=== PATIENT | female | born 1935 | race Caucasian/White ===

== ENCOUNTER 2020-04-03 13:39 | Emergency (ER) | payer MEDICARE, OTHER ==
[~2020-04-03] VITALS: Ht 154.9 cm; Wt 86.2 kg
[2020-04-03 13:46] VITALS: BP 127/67
--- NOTE | 2020-04-03 14:44 | Emergency Room Report ---
History of Present Illness General Chief Complaint: Back Pain-No Injury Source: Patient Present Illness HPI 84-year-old female presents to the emergency department complaining of 10 out of 10 severity progressive onset left-sided lower back/upper gluteal pain x1 week. Patient reports she has been taking Tylenol and Advil which does provide some minimal relief however her pain does return. Patient reports a dull ache that is intermittent. Patient reports that cold air exacerbates her symptoms. Patient denies trauma or fall. She denies midline back pain. She denies radiation of her pain down the leg. She denies abdominal pain, fevers, chills, dysuria or urinary frequency. Patient denies rashes. Patient localizes her pain and states it is in the muscles. Patient states initially she was having some relief with Voltaren gel but not anymore. Denies numbness tingling or loss of sensation or gross motor movements of the extremities, incontinence of bowel or bladder. Denies CP, Palpitations, LOC, AMS, dizziness, Changes in Vision, weakness or a sudden severe headache. Allergies: Coded Allergies: ASPIRIN (Verified Allergy, Unknown, 04/03/20) PENICILLINS (Verified Allergy, Unknown, 04/03/20) COVID-19 Screening Contact w/high risk pt: No Experienced COVID-19 symptoms?: No COVID-19 Testing performed ALMOND ROASTER: No Patient History Past Medical History: see triage record Past Surgical History: none Pertinent Family History: none Now: No Reviewed Nursing Documentation: PMH: Agreed; PSxH: Agreed Nursing Documentation-PMH Past Medical History: No Stated History Review of Systems All Other Systems: negative except mentioned in HPI Physical Exam Vital Signs Date Time Temp Pulse Resp B/P (MAP) Pulse Ox O2 Delivery O2 Flow Rate FiO2 04/03/20 13:46 98.2 77 16 127/67 100 Room Air Sp02 EP Interpretation: reviewed, normal General Appearance: no apparent distress, alert, GCS 15, non-toxic Head: normocephalic, atraumatic Eyes: bilateral eye normal inspection, bilateral eye PERRL ENT: hearing grossly normal, normal voice Neck: full range of motion Respiratory: lungs clear, normal breath sounds, speaking full sentences Cardiovascular #1: regular rate, rhythm Gastrointestinal: non tender, soft Genitourinary: normal inspection, no CVA tenderness Musculoskeletal: normal range of motion, gait/station normal - compensatory with cane use, tender - Left upper gluteal and left paraspinal lumbar muscular tenderness to palpation. No bony prominence tenderness no midline spinous process tenderness, no bruises, no obvious spinal deformities, no hip joint pain. Neurologic: alert, motor strength/tone normal, oriented x3, sensory intact, responsive, speech normal, grossly normal Psychiatric: judgement/insight normal Skin: no rash, normal color Medical Decision Making PA Attestation Dr. Sanches Is my supervising Physician whom patient management has been discussed with. Diagnostic Impression: Primary Impression: Back pain Qualified Codes: M54.5 - Low back pain ER Course 84-year-old female presents to the emergency department complaining of 10 out of 10 severity progressive onset left-sided lower back/upper gluteal pain x1 week. Patient reports she has been taking Tylenol and Advil which does provide some minimal relief however her pain does return. Patient reports a dull ache that is intermittent. Patient reports that cold air exacerbates her symptoms. Patient denies trauma or fall. She denies midline back pain. She denies radiation of her pain down the leg. She denies abdominal pain, fevers, chills, dysuria or urinary frequency. Patient denies rashes. Patient localizes her pain and states it is in the muscles. Patient states initially she was having some relief with Voltaren gel but not anymore. Denies numbness tingling or loss of sensation or gross motor movements of the extremities, incontinence of bowel or bladder. Denies CP, Palpitations, LOC, AMS, dizziness, Changes in Vision, weakness or a sudden severe headache. Ddx considered but are not limited to Fracture, dislocation, contusion, epidural abscess, Sprain/Strain/Spasm Vital signs: are WNL, pt. is afebrile H&PE are most consistent with localized muscular pain & tenderness, no bony involvement. Patient is nontoxic in appearance and in no acute distress. She does appear uncomfortable when walking with her cane. ORDERS: X-ray not required at this time, no spinous process tenderness ED INTERVENTIONS: IM Toradol 30mg. Lidoderm patch DISCHARGE: At this time pt. is stable for d/c to home. Will provide printed patient care instructions, and any necessary prescriptions. Care plan and follow up instructions have been discussed with the patient prior to discharge. Last Vital Signs Date Time Temp Pulse Resp B/P (MAP) Pulse Ox O2 Delivery O2 Flow Rate FiO2 04/03/20 13:46 98.2 77 16 127/67 (87) 100 Room Air Disposition: HOME, SELF-CARE Condition: Stable Scripts Lidocaine Patch* (Lidoderm Patch*) 1 Each Adh..patch 1 PATCH TOPIC DAILY, #30 PATCH 0 Refills Patch(es) may remain in place for up to 12 hours in any 24-hour period. Prov: Lashawn Guerra 04/03/20 Methocarbamol* (ROBAXIN-750*) 750 Mg Tablet 750 MG PO QID, #28 TAB 0 Refills Prov: Lashawn Guerra 04/03/20 Referrals: NON PHYSICIAN (PCP) Patient Instructions: Back Pain, Adult Additional Instructions: Take medications as directed. Do not drink alcohol, drive, or operate heavy machinery while taking Robaxin ( Muscle Relaxers) as this may cause drowsiness. Follow up with a Primary Care Provider in 3-5 days, even if your symptoms have resolved. Return sooner to ED if new symptoms occur, or current symptoms become worse. - Please note that this Emergency Department Report was dictated using [employer] insurance technology software, occasionally this can lead to erroneous entry secondary to interpretation by the dictation equipment. Lashawn Guerra Apr 03, 2020 14:44
[2020-04-03] MEDS ORDERED: Ketorolac 30mg Inj IM ONE (14:45)
[2020-04-03] MEDS ORDERED: ROBAXIN-750750 MG PO (14:54)
[2020-04-03] MEDS ORDERED: LIDODERM700 M1 TOPIC (14:54)
[2020-04-03 15:00] VITALS: BP 127/67
[2020-04-03 15:04] VITALS: BP 121/62
[2020-04-03 15:05] VITALS: BP 121/62
== END 2020-04-03 15:05 | disposition home or self-care (01) ==
LOC: EMR 14:20
DX: M54.5 Low back pain (principal); Z88.0 Allergy status to penicillin; Z88.6 Allergy status to analgesic agent
CPT/HCPCS: 96372; 99283; J1885